=== PATIENT | female | born 1960 | race Caucasian/White ===

== ENCOUNTER 2018-01-05 08:21 | Day surgery (SDC) | payer MEDICARE, MEDICAID ==
[2018-01-05 10:39] VITALS: BMI 28.1
[2018-01-05] MEDS ORDERED: Lactated Ringer's 1,000 ML IV ONE (10:50)
[2018-01-05] MEDS ORDERED: Propofol 10 mg/ml Inj (20 ML) ONE (11:46)
[2018-01-05] MEDS ORDERED: Lidocaine 2% MPF (5 ml) Inj ONE (11:47)
[2018-01-05 12:31] VITALS: TEMP 96.8
[2018-01-05 12:37] VITALS: BP 105/57; PULSE 52; RESP 16; O2SAT 99
== END 2018-01-05 13:00 | disposition home or self-care (01) ==
LOC: H.ENDO 08:21
PROVIDERS: ATTEND Internal Medicine Gastroenterology
DX: Z85.038 Personal history of other malignant neoplasm of large intestine (principal); K64.1 Second degree hemorrhoids; E11.9 Type 2 diabetes mellitus without complications; I10 Essential (primary) hypertension; K29.50 Unspecified chronic gastritis without bleeding; K30 Functional dyspepsia
CPT/HCPCS: 43239; 45378; 82948; 88305; J2704; J7120